=== PATIENT | female | born 1925 | race African-American/Black ===

== ENCOUNTER 2016-12-19 10:15 | Emergency (ER) | payer MEDICARE ==
[~2016-12-19 10:15] MED LIST changes: -IOHEXOL 240 MG/ML 50ML VIAL. PO ONE
[2016-12-19] MEDS ORDERED: DEXTROSE 50% 25 GM / 50ML DISP.SYRIN. IV ONE ×2 (10:18→10:30)
[2016-12-19] MEDS ORDERED: DEXTROSE ORAL GEL 15 GM TUBE. ONE (10:19)
--- NOTE | 2016-12-19 10:33 | PHYS DOC ---
Past Medical History Past Medical History: Cancer, Diabetes-Type II, Hypertension, Other Additional Past Medical Histor: breast cancer Past Surgical History: Hysterectomy, Other Additional Past Surgical Histo: bilateral mastectomy Alcohol Use: None Drug Use: None Adult General Chief Complaint Chief Complaint: HYPOGLYCEMIA HPI HPI Patient is a 89 year old female who presents with friend from radiology waiting room for altered mental status. She came here nothing by mouth for an outpatient oral contrasted CT. She states she drinks worse juice and took 3 glucose tablets this morning, she also took her metformin. She did not eat otherwise. She went to the restroom and was there too long. Radiology staff was asked to check on her and she was found sitting on the toilet slumped against the wall. She was brought her by wheelchair nearly unresponsive. Her blood glucose was found to be very low upon arrival here. This was replaced with IV dextrose with mental status returned to baseline. She gave history as stated after her mental status was fixed. She otherwise states she has been in normal state of health. She denies headache, vision changes, numbness, tingling, weakness, chest pain, abdominal pain, nausea or vomiting, fever or chills, dysuria, diarrhea. She has been eating and drinking normal until her restriction today. Review of Systems Review of Systems Constitutional: Denies fever or chills [] Eyes: Denies change in visual acuity, redness, or eye pain [] HENT: Denies nasal congestion or sore throat [] Respiratory: Denies cough or shortness of breath [] Cardiovascular: No additional information not addressed in HPI [] GI: Denies abdominal pain, nausea, vomiting, bloody stools or diarrhea [] : Denies dysuria or hematuria [] Musculoskeletal: Denies back pain or joint pain [] Integument: Denies rash or skin lesions [] Neurologic: Denies headache, focal weakness or sensory changes [] Endocrine: Denies polyuria or polydipsia [] Current Medications Current Medications Current Medications Medications (Trade) Dose Ordered Sig/Herman Start Time Stop Time Status Last Admin Dose Admin Dextrose 25 gm STK-MED ONCE 12/19/16 10:18 12/19/16 10:19 DC Dextrose/Sodium Chloride (Iv D5% - NS) 1,000 ml @ 100 mls/hr 1X ONCE 12/19/16 11:00 12/19/16 20:59 12/19/16 10:40 100 MLS/HR Glucose 15 gm 15 gm STK-MED ONCE 12/19/16 10:19 12/19/16 10:20 DC Allergies Allergies Allergies Coded Allergies Type Severity Reaction Last Updated Verified lisinopril Allergy Severe angioedema 11/14/15 Yes Physical Exam Physical Exam Constitutional: Well developed, well nourished, no acute distress, non-toxic appearance. [] HENT: Normocephalic, atraumatic, bilateral external ears normal, oropharynx moist, no oral exudates, nose normal. [] Eyes: PERRLA, EOMI. [] Neck: Normal range of motion, supple. [] Cardiovascular:Heart rate regular rhythm [] Lungs & Thorax: Bilateral breath sounds clear to auscultation [] Abdomen: Bowel sounds normal, soft, no tenderness. [] Skin: Warm, dry, no erythema, no rash. [] Back: Normal range of motion. [] Extremities: No tenderness, ROM intact, no edema. [] Neurologic: Alert and oriented X 3, normal motor function, normal sensory function, no focal deficits noted, cranial nerves II through XII intact. [] Psychologic: Affect normal, judgement normal, mood normal. [] Current Patient Data Vital Signs Vital Signs Date Time Temp Pulse Resp B/P Pulse Ox O2 Delivery O2 Flow Rate FiO2 12/19/16 10:15 98.2 87 28 224/106 95 Room Air 98.2 Lab Values Laboratory Tests Test 12/19/16 10:20 12/19/16 11:09 12/19/16 12:13 White Blood Count 5.9x10^3/uL (4.0-11.0) Red Blood Count 5.07x10^6/uL (3.50-5.40) Hemoglobin 14.7g/dL (12.0-15.5) Hematocrit 41.7% (36.0-47.0) Mean Corpuscular Volume 82fL (79-100) Mean Corpuscular Hemoglobin 29pg (25-35) Mean Corpuscular Hemoglobin Concent 35g/dL (31-37) Red Cell Distribution Width 14.8% (11.5-14.5) H Platelet Count 324x10^3/uL (140-400) Neutrophils (%) (Auto) 51% (31-73) Lymphocytes (%) (Auto) 37% (24-48) Monocytes (%) (Auto) 10% (0-9) H Eosinophils (%) (Auto) 1% (0-3) Basophils (%) (Auto) 1% (0-3) Neutrophils # (Auto) 3.0x10^3uL (1.8-7.7) Lymphocytes # (Auto) 2.2x10^3/uL (1.0-4.8) Monocytes # (Auto) 0.6x10^3/uL (0.0-1.1) Eosinophils # (Auto) 0.1x10^3/uL (0.0-0.7) Basophils # (Auto) 0.1x10^3/uL (0.0-0.2) Sodium Level 143mmol/L (136-145) Potassium Level 3.8mmol/L (3.5-5.1) Chloride Level 103mmol/L (98-107) Carbon Dioxide Level 27mmol/L (21-32) Anion Gap 13 (6-14) Blood Urea Nitrogen 34mg/dL (7-20) H Creatinine 1.1mg/dL (0.6-1.0) H Estimated GFR (Cockcroft-Gault) 56.6 Glucose Level 23mg/dL (70-99) *L Calcium Level 10.0mg/dL (8.5-10.1) Glucose (Fingerstick) 107mg/dL (70-99) H 99mg/dL (70-99) Laboratory Tests 12/19/16 10:20 Laboratory Tests 12/19/16 10:20 EKG EKG EKG as interpreted by me as normal sinus rhythm, rate 86, no ST-T changes, normal intervals, no ectopy. Course & Med Decision Making Course & Med Decision Making Pertinent Labs and Imaging studies reviewed. (See chart for details) She initially had severely altered mental status. Hypoglycemia was treated with IV dextrose. She then had her outpatient CT study performed with IV dextrose infusion. She was observed after this and fed. Her mental status stayed at baseline. She wanted to go home and follow-up with primary care doctor. Return precautions given. She understands and agrees with plan. Dragon Disclaimer Dragon Disclaimer This electronic medical record was generated, in whole or in part, using a voice recognition dictation system. Departure Departure Impression: Primary Impression: Hypoglycemia Disposition: HOME, SELF-CARE Condition: STABLE Referrals: ORLANDO DOMINGUEZ MD (PCP) Patient Instructions: Hypoglycemia, [id number] Additional Instructions: Follow up with your primary care doctor. Return for any concerns. Luis Fernando DIEHL MD Dec 19, 2016 10:33
[2016-12-19 10:52] LABS: BASO % 1 % (0-3); EOS % 1 % (0-3); HEMATOCRIT 41.7 % (36.0-47.0); HEMOGLOBIN 14.7 g/dL (12.0-15.5); LYMPH # 2.2 x10^3/uL (1.0-4.8); LYMPH % 37 % (24-48); MEAN CORPUSCULAR HEMOGLOBIN 29 pg (25-35); MEAN CORPUSCULAR HGB CONC 35 g/dL (31-37); MEAN CORPUSCULAR VOLUME 82 fL (79-100); MONO % 10 % (0-9); NEUT % 51 % (31-73); PLATELET COUNT 324 x10^3/uL (140-400); RED BLOOD COUNT 5.07 x10^6/uL (3.50-5.40); RED CELL DISTRIBUTION WIDTH 14.8 % (11.5-14.5); WHITE BLOOD COUNT 5.9 x10^3/uL (4.0-11.0)
[2016-12-19 10:53] LABS: BASO # 0.1 x10^3/uL (0.0-0.2)
[2016-12-19] MEDS ORDERED: IV DEXTROSE 5% - 0.9 % NACL 1,000 ML IV ONE (11:00)
[2016-12-19 11:27] LABS: CREATININE 1.1 mg/dL (0.6-1.0); GFR 56.6; POTASSIUM 3.8 mmol/L (3.5-5.1)
[2016-12-19 11:51] VITALS: BP 183/81
--- NOTE | 2016-12-19 14:27 | EKG ---
[facility] [address] [place] [address] Test Date: 2016-12-19 Test Time: 10:18:25 Pat Name: RIZWANA STILES Department: Room: Gender: F Director Private: : [id number] Requested By: Luis Fernando DIEHL Order Number: [id number] Reading MD: Measurements Intervals [place] Rate: 86 P: -90 TN: 126 QRS: -11 QRSD: 86 T: 13 QT: 350 QTc: 422 Interpretive Statements SUPRAVENTRICULAR RHYTHM LEFTWARD AXIS RI6.01 Unconfirmed report No previous ECG available for comparison
== END 2016-12-19 12:59 | disposition home or self-care (01) ==
LOC: ER 10:15
DX: E11.649 Type 2 diabetes mellitus with hypoglycemia without coma (principal); R41.82 Altered mental status, unspecified; I10 Essential (primary) hypertension; Z90.710 Acquired absence of both cervix and uterus; Z88.8 Allergy status to other drugs, medicaments and biological substances
CPT/HCPCS: 36415; 80048; 82947; 85027; 93005; 96361; 96374; J7042; 99285-25

== ENCOUNTER → 2016-12-19 | Outpatient (CLI) | payer MEDICARE ==
[2016-06-19 19:38] VITALS: BP 142/75
[~2016-12-19] MED LIST: ACET325T9 PO; AMLO5TAB4 PO; ANAS1TAB3 PO; ASPI-482 PO; CARV6.25 PO; CITA10TA8 PO; CYAN10005 PO; DICL100G7 TP; ERGO500012 PO; FURO-68 PO; INSU100C4 SQ; INSU100I17 SQ; INSU100I27 SQ; INSU100V8 SQ; IOHEXOL 240 MG/ML 50ML VIAL. PO ONE; LOSA100T2 PO; MAGN400C PO; MAGN400T3 PO; MAGN500T PO; METF10002 PO; METF500T4 PO; MULT1TAB13 PO; POTA20TA84 PO; TRAM50TA PO
--- NOTE | 2016-12-19 11:16 | RAD ---
EXAM: CT OF THE CHEST, ABDOMEN AND PELVIS WITHOUT INTRAVENOUS CONTRAST. HISTORY: Restaging breast cancer. TECHNIQUE: Computed tomography of the chest, abdomen and pelvis was performed without intravenous contrast. COMPARISON: 08/09/2016. 11/29/2015 FINDINGS: Bone windows reveal no suspicious lesions. There is grade 1 anterolisthesis at L4-5. There is diffuse moderate to severe lumbar degenerative disc disease. There is moderate to severe central canal stenosis from L3 through S1. There are no pathologically enlarged mediastinal or axillary lymph nodes. Calcified mediastinal lymph nodes are likely secondary to old granulomatous disease. There is no pleural or pericardial effusion. The heart is mildly enlarged. There is a moderate hiatal hernia. The left thyroid lobe is mildly enlarged. There are changes of bilateral mastectomy. Regions of groundglass density along the right minor fissure are mild pleural thickening and are flat on the coronal images. These are stable. There is a stable 3 mm groundglass density nodule in the right middle lobe on image 33. A pleural-based nodule in the left lower lobe on image 27 measures 6 mm and is stable. Calcified granulomas are noted in the left lower lobe. There is mild bibasilar atelectasis. There are calcified granulomas in the liver and spleen. The gallbladder, pancreas, and adrenal glands are unremarkable without contrast. A small nodule inferolaterally along the left renal lower pole may represent only cortical lobulation and is stable chronically and likely benign. There is no hydronephrosis. There are no pathologically enlarged lymph nodes. Left colonic diverticulosis is moderate. There is no ascites. The appendix is not inflamed. There is no obstruction. The uterus is surgically absent. IMPRESSION: 1. No clear evidence of metastatic disease. 2. Multiple small pulmonary nodules have been stable since at least 11/18/2014 and are likely benign. 3. Mild cardiomegaly. 4. Moderate hiatal hernia. 5. Moderate to severe central canal stenosis along the lower lumbar spine. *One or more of the following individualized dose reduction techniques were utilized for this examination: 1. Automated exposure control. 2. Adjustment of the mA and/or kV according to patient size. 3. Use of iterative reconstruction technique.
--- NOTE | 2016-12-19 13:36 | RAD ---
EXAM: Bone scintigraphy. HISTORY: Breast cancer. TECHNIQUE: Following the intravenous injection of 25.0 mCi of Tc-99m labeled methylene diphosphonate (MDP), delayed images of the whole body were performed in anterior and posterior projections. Comparison is made with today's CT and prior scintigraphy of 11/18/2014. FINDINGS: A focus of uptake along the right anterior seventh rib is consistent with a subacute nondisplaced rib fracture on today's CT. Regions of mild uptake along the lumbar spine correspond with advanced degenerative changes on CT. There is also degenerative uptake at the right greater than left shoulders. Mild uptake at the right hip is consistent with osteoarthritis. There is also degenerative uptake along both hindfeet/mid feet. There is intense uptake along the lateral compartment of the right knee, at the left patella. These are most likely degenerative in this distribution. No foci of intense uptake suggestive of metastatic disease are identified. IMPRESSION: 1. No scintigraphic evidence of osseous metastatic disease. 2. Intense uptake at the right greater than left knees is most likely degenerative. Plain radiographs could further evaluate. Additional milder degenerative uptake as above. 3. Subacute right anterior seventh rib fracture.
== END | disposition home or self-care (01) ==
LOC: NM 08:38
PROVIDERS: ATTEND Internal Medicine Hematology & Oncology
DX: C50.511 Malignant neoplasm of lower-outer quadrant of right female breast (principal); I10 Essential (primary) hypertension; E11.9 Type 2 diabetes mellitus without complications
CPT/HCPCS: 71250; 74176; 78306; 82947; 96374; A9503; Q9966

== ENCOUNTER 2017-01-15 03:18 | Emergency (ER) | payer MEDICARE ==
[~2017-01-15] VITALS: Ht 154.9 cm; Wt 77.1 kg
[~2017-01-15 03:18] MED LIST changes: +DICL100G18 TP; -DICL100G7 TP; -ERGO500012 PO; +ERGO500027 PO; +METF-620 PO; -METF10002 PO
[2017-01-15 03:44] VITALS: BP 188/86
[2017-01-15 04:21] LABS: BASO # 0.1 x10^3/uL (0.0-0.2); BASO % 1 % (0-3); EOS % 2 % (0-3); HEMATOCRIT 38.2 % (36.0-47.0); HEMOGLOBIN 13.1 g/dL (12.0-15.5); LYMPH # 1.4 x10^3/uL (1.0-4.8); LYMPH % 20 % (24-48); MEAN CORPUSCULAR HEMOGLOBIN 29 pg (25-35); MEAN CORPUSCULAR HGB CONC 34 g/dL (31-37); MEAN CORPUSCULAR VOLUME 84 fL (79-100); MONO % 9 % (0-9); NEUT % 68 % (31-73); PLATELET COUNT 291 x10^3/uL (140-400); RED BLOOD COUNT 4.53 x10^6/uL (3.50-5.40); RED CELL DISTRIBUTION WIDTH 14.8 % (11.5-14.5); WHITE BLOOD COUNT 6.7 x10^3/uL (4.0-11.0)
[2017-01-15 04:28] LABS: CALCIUM 10.2 mg/dL (8.5-10.1); CREATININE 1.2 mg/dL (0.6-1.0); GFR 51.2; POTASSIUM 3.8 mmol/L (3.5-5.1)
--- NOTE | 2017-01-15 05:02 | PHYS DOC ---
Past Medical History Past Medical History: Cancer, Diabetes-Type II, Hypertension, Other Additional Past Medical Histor: breast cancer Past Surgical History: Hysterectomy, Other Additional Past Surgical Histo: bilateral mastectomy Alcohol Use: None Drug Use: None Adult General Chief Complaint Chief Complaint: BLOOD SUGAR PROBLEM [facility] This is a very pleasant 89-year-old female who states she ran out of her usual Lantus therapy for her diabetes and was using a sample of Levemir to treat her blood glucose after she found it to be elevated at home in the 300 range. She then repeated her blood glucose several hours later and found her blood glucose to be low. She denies any significant symptoms but wanted to be evaluated because she states she does not feel the same way that she usually does when she takes her Lantus. On arrival, her blood glucose is 86. The patient does not appear to be in any stress. She is speaking in sentences. She does not have any pain. She denies any fever or chills. She denies any chest pain. She denies any shortness of breath. Review of Systems Review of Systems Constitutional: Denies fever or chills [] Eyes: Denies change in visual acuity, redness, or eye pain [] HENT: Denies nasal congestion or sore throat [] Respiratory: Denies cough or shortness of breath [] Cardiovascular: No additional information not addressed in HPI [] GI: Denies abdominal pain, nausea, vomiting, bloody stools or diarrhea [] : Denies dysuria or hematuria [] Musculoskeletal: Denies back pain or joint pain [] Integument: Denies rash or skin lesions [] Neurologic: Denies headache, focal weakness or sensory changes [] Endocrine: Denies polyuria or polydipsia [] Allergies Allergies Allergies Coded Allergies Type Severity Reaction Last Updated Verified lisinopril Allergy Severe angioedema 11/14/15 Yes Physical Exam Physical Exam Constitutional: Well developed, well nourished, no acute distress, non-toxic appearance. [] HENT: Normocephalic, atraumatic, bilateral external ears normal, oropharynx moist, no oral exudates, nose normal. [] Eyes: PERRLA, EOMI, conjunctiva normal, no discharge. [] Neck: Normal range of motion, no tenderness, supple, no stridor. [] Cardiovascular:Heart rate regular rhythm, no murmur [] Lungs & Thorax: Bilateral breath sounds clear to auscultation [] Abdomen: Bowel sounds normal, soft, no tenderness, no masses, no pulsatile masses. [] Skin: Warm, dry, no erythema, no rash. [] Back: No tenderness, no CVA tenderness. [] Extremities: No tenderness, no cyanosis, no clubbing, ROM intact, no edema. [] Neurologic: Alert and oriented X 3, normal motor function, normal sensory function, no focal deficits noted. [] Psychologic: Affect normal, judgement normal, mood normal. [] Current Patient Data Vital Signs Vital Signs Date Time Temp Pulse Resp B/P Pulse Ox O2 Delivery O2 Flow Rate FiO2 01/15/17 03:44 97.7 77 20 188/86 97 Room Air 97.7 Lab Values Laboratory Tests Test 01/15/17 03:39 01/15/17 04:06 Glucose (Fingerstick) 86mg/dL (70-99) White Blood Count 6.7x10^3/uL (4.0-11.0) Red Blood Count 4.53x10^6/uL (3.50-5.40) Hemoglobin 13.1g/dL (12.0-15.5) Hematocrit 38.2% (36.0-47.0) Mean Corpuscular Volume 84fL (79-100) Mean Corpuscular Hemoglobin 29pg (25-35) Mean Corpuscular Hemoglobin Concent 34g/dL (31-37) Red Cell Distribution Width 14.8% (11.5-14.5) H Platelet Count 291x10^3/uL (140-400) Neutrophils (%) (Auto) 68% (31-73) Lymphocytes (%) (Auto) 20% (24-48) L Monocytes (%) (Auto) 9% (0-9) Eosinophils (%) (Auto) 2% (0-3) Basophils (%) (Auto) 1% (0-3) Neutrophils # (Auto) 4.6x10^3uL (1.8-7.7) Lymphocytes # (Auto) 1.4x10^3/uL (1.0-4.8) Monocytes # (Auto) 0.6x10^3/uL (0.0-1.1) Eosinophils # (Auto) 0.1x10^3/uL (0.0-0.7) Basophils # (Auto) 0.1x10^3/uL (0.0-0.2) Sodium Level 140mmol/L (136-145) Potassium Level 3.8mmol/L (3.5-5.1) Chloride Level 101mmol/L (98-107) Carbon Dioxide Level 27mmol/L (21-32) Anion Gap 12 (6-14) Blood Urea Nitrogen 29mg/dL (7-20) H Creatinine 1.2mg/dL (0.6-1.0) H Estimated GFR (Cockcroft-Gault) 51.2 Glucose Level 86mg/dL (70-99) Calcium Level 10.2mg/dL (8.5-10.1) H Laboratory Tests 01/15/17 04:06 Laboratory Tests 01/15/17 04:06 EKG EKG [] Radiology/Procedures Radiology/Procedures [] Course & Med Decision Making Course & Med Decision Making Pertinent Labs and Imaging studies reviewed. (See chart for details) This pleasant 89-year-old female who states she has run out of her Lantus and is using Levemir until she can get it refilled was observed in the department for multiple hours and a blood glucose checked multiple times. Laboratory workup was unremarkable. Her blood glucose remained normal. She has not had any symptoms whatsoever and will be safe to be discharged. I discussed the need with the daughter to follow-up with her primary care doctor to get her Lantus refilled. The daughter states she will attempt to do this later today. She'll be discharged without incident. Dragon Disclaimer Dragon Disclaimer This electronic medical record was generated, in whole or in part, using a voice recognition dictation system. Departure Departure Impression: Primary Impression: Low blood glucose measurement Disposition: 01 HOME, SELF-CARE Admitting Physician: Other Condition: STABLE Referrals: ORLANDO DOMINGUEZ MD (PCP) Patient Instructions: Hypoglycemia, [id number] Additional Instructions: Please follow up later today with your primary doctor to have your Lantus prescription refilled. Continue to use your Levemir until you can receive your prescription refill. Return to the ER if you develop difficulty controlling your blood glucose or if you develop any significant symptoms such as nausea, vomiting, weakness, or lightheadedness. JAVED SOLIMAN DO Jan 15, 2017 05:02
[2017-01-19] MEDS ORDERED: METF-620 PO (02:32)
== END 2017-01-15 05:31 | disposition home or self-care (01) ==
LOC: ER 03:18
DX: E11.649 Type 2 diabetes mellitus with hypoglycemia without coma (principal); I10 Essential (primary) hypertension; Z79.4 Long term (current) use of insulin; Z88.8 Allergy status to other drugs, medicaments and biological substances; Z90.13 Acquired absence of bilateral breasts and nipples
CPT/HCPCS: 36415; 80048; 82962; 85027; 99284

== ENCOUNTER 2017-01-18 20:58 | Inpatient (IN) | payer MEDICARE ==
[~2017-01-18] VITALS: Ht 154.9 cm; Wt 73.0 kg
[~2017-01-18 20:58] MED LIST changes: -DICL100G18 TP; +DICL100G7 TP; +ERGO500012 PO; -ERGO500027 PO; -METF-620 PO; +METF10002 PO
[2017-01-18 22:11] LABS: BASO % 1 % (0-3); EOS % 0 % (0-3); HEMATOCRIT 39.6 % (36.0-47.0); HEMOGLOBIN 13.4 g/dL (12.0-15.5); LYMPH # 1.8 x10^3/uL (1.0-4.8); LYMPH % 31 % (24-48); MEAN CORPUSCULAR HEMOGLOBIN 28 pg (25-35); MEAN CORPUSCULAR HGB CONC 34 g/dL (31-37); MEAN CORPUSCULAR VOLUME 84 fL (79-100); MONO % 13 % (0-9); NEUT % 55 % (31-73); PLATELET COUNT 301 x10^3/uL (140-400); RED BLOOD COUNT 4.72 x10^6/uL (3.50-5.40); RED CELL DISTRIBUTION WIDTH 14.8 % (11.5-14.5); WHITE BLOOD COUNT 5.9 x10^3/uL (4.0-11.0)
[2017-01-18 22:14] LABS: BILIRUBIN,URINE NEGATIVE (NEG); GLUCOSE,URINE NEGATIVE (NEG); NITRITE,URINE NEGATIVE (NEG); PH,URINE 5.5; PROTEIN,URINE NEGATIVE (NEG-TRACE); UROBILINOGEN,URINE 0.2 mg/dL (0.2 mg/dL)
[2017-01-18 22:22] LABS: BACTERIA,URINE 0 /HPF (0-FEW); RBC,URINE 0 /HPF (0-2); SQUAMOUS EPITHELIAL CELL,UR FEW /LPF; WBC,URINE 0 /HPF (0-4)
[2017-01-18 22:27] LABS: CALCIUM 9.8 mg/dL (8.5-10.1); CREATININE 1.5 mg/dL (0.6-1.0); GFR 39.6; POTASSIUM 3.9 mmol/L (3.5-5.1)
[2017-01-18 23:06] LABS: ALBUMIN 3.8 g/dL (3.4-5.0); DIRECT BILIRUBIN 0.2 mg/dL (0.0-0.2); TOTAL BILIRUBIN 0.7 mg/dL (0.2-1.0); TOTAL PROTEIN 7.9 g/dL (6.4-8.2)
--- NOTE | 2017-01-18 23:33 | RAD ---
PROCEDURE CT scan of the head without contrast 01/18/2017 HISTORY Altered mental status and weakness. TECHNIQUE Unenhanced contiguous, 5 millimeter axial sections were obtained through the head. One or more of the following individualized dose reduction techniques were utilized for this study: 1. Automated exposure control. 2. Adjustment of the mA and/or kV according to patient size. 3. Use of iterative reconstruction technique. FINDINGS Comparison study is dated 03/29/2016. There is generalized parenchymal atrophy. Areas of decreased attenuation are seen within the white matter both cerebral hemispheres consistent with areas of small vessel ischemic disease. No acute parenchymal abnormality is seen. No extra-axial fluid collection is noted. No skull fracture is seen. IMPRESSION No acute intracranial abnormality is seen. Electronically signed by: Pelon Coker MD (Jan 18, 2017 23:33:11)
--- NOTE | 2017-01-19 00:04 | PHYS DOC ---
Past Medical History Past Medical History: Cancer, Diabetes-Type II, Hypertension, Other Additional Past Medical Histor: breast cancer Past Surgical History: Hysterectomy, Other Additional Past Surgical Histo: bilateral mastectomy Alcohol Use: None Drug Use: None Adult General Chief Complaint Chief Complaint: ALTERED MENTAL STATUS [facility] Patient is a 89 year old female who presents with family for concern of altered mental status gradually developing throughout today. Daughter and granddaughter saw her yesterday, and states she was in her normal state of health; ambulatory and oriented. She lives independently and ambulates without assistance. Family states today she has confused and tired appearing. Family states she has been slightly disoriented and is not getting out of bed. Family states she had an episode of urinary incontinence. Patient and family otherwise deny other complaints or symptoms at this time. She states she feels fine, other than being tired. Review of Systems Review of Systems Constitutional: Denies fever or chills [] Eyes: Denies change in visual acuity, redness, or eye pain [] HENT: Denies nasal congestion or sore throat [] Respiratory: Denies cough or shortness of breath [] Cardiovascular: No additional information not addressed in HPI [] GI: Denies abdominal pain, nausea, vomiting, bloody stools or diarrhea [] : Denies dysuria or hematuria [] Musculoskeletal: Denies back pain or joint pain [] Integument: Denies rash or skin lesions [] Neurologic: Denies headache, focal weakness or sensory changes [] Endocrine: Denies polyuria or polydipsia [] Allergies Allergies Allergies Coded Allergies Type Severity Reaction Last Updated Verified lisinopril Allergy Severe angioedema 11/14/15 Yes Physical Exam Physical Exam Constitutional: Well developed, well nourished, no acute distress, non-toxic appearance. [] HENT: Normocephalic, atraumatic, bilateral external ears normal, oropharynx moist, no oral exudates, nose normal. [] Eyes: PERRLA, EOMI, conjunctiva normal, no discharge. [] Neck: Normal range of motion, no tenderness, supple, no stridor. [] Cardiovascular:Heart rate regular rhythm [] Lungs & Thorax: Bilateral breath sounds clear to auscultation [] Abdomen: Bowel sounds normal, soft, no tenderness. [] Skin: Warm, dry, no erythema, no rash. [] Back: No tenderness, no CVA tenderness. [] Extremities: No tenderness, ROM intact, no edema. [] Neurologic: Alert and oriented to self, year, situation; normal motor function, normal sensory function, no focal deficits noted, no extremity drift. [] Psychologic: Affect normal, judgement normal, mood normal. [] Current Patient Data Vital Signs Vital Signs Date Time Temp Pulse Resp B/P Pulse Ox O2 Delivery O2 Flow Rate FiO2 01/18/17 21:20 99.0 96 18 164/75 97 Room Air 99.0 Lab Values Laboratory Tests Test 01/18/17 21:10 White Blood Count 5.9x10^3/uL (4.0-11.0) Red Blood Count 4.72x10^6/uL (3.50-5.40) Hemoglobin 13.4g/dL (12.0-15.5) Hematocrit 39.6% (36.0-47.0) Mean Corpuscular Volume 84fL (79-100) Mean Corpuscular Hemoglobin 28pg (25-35) Mean Corpuscular Hemoglobin Concent 34g/dL (31-37) Red Cell Distribution Width 14.8% (11.5-14.5) H Platelet Count 301x10^3/uL (140-400) Neutrophils (%) (Auto) 55% (31-73) Lymphocytes (%) (Auto) 31% (24-48) Monocytes (%) (Auto) 13% (0-9) H Eosinophils (%) (Auto) 0% (0-3) Basophils (%) (Auto) 1% (0-3) Neutrophils # (Auto) 3.3x10^3uL (1.8-7.7) Lymphocytes # (Auto) 1.8x10^3/uL (1.0-4.8) Monocytes # (Auto) 0.8x10^3/uL (0.0-1.1) Eosinophils # (Auto) 0.0x10^3/uL (0.0-0.7) Basophils # (Auto) 0.0x10^3/uL (0.0-0.2) Urine Collection Type Unknown Urine Color Yellow Urine Clarity Clear Urine pH 5.5 Urine Specific [place] 1.015 Urine Protein Negativemg/dL (NEG-TRACE) Urine Glucose (UA) Negativemg/dL (NEG) Urine Ketones (Stick) Tracemg/dL (NEG) Urine Blood Negative (NEG) Urine Nitrite Negative (NEG) Urine Bilirubin Negative (NEG) Urine Urobilinogen Dipstick 0.2mg/dL (0.2 mg/dL) Urine Leukocyte Esterase Negative (NEG) Urine RBC 0/HPF (0-2) Urine WBC 0/HPF (0-4) Urine Squamous Epithelial Cells Few/LPF Urine Bacteria 0/HPF (0-FEW) Urine Mucus Slight/LPF Sodium Level 139mmol/L (136-145) Potassium Level 3.9mmol/L (3.5-5.1) Chloride Level 100mmol/L (98-107) Carbon Dioxide Level 28mmol/L (21-32) Anion Gap 11 (6-14) Blood Urea Nitrogen 39mg/dL (7-20) H Creatinine 1.5mg/dL (0.6-1.0) H Estimated GFR (Cockcroft-Gault) 39.6 Glucose Level 119mg/dL (70-99) H Calcium Level 9.8mg/dL (8.5-10.1) Total Bilirubin 0.7mg/dL (0.2-1.0) Direct Bilirubin 0.2mg/dL (0.0-0.2) Aspartate Amino Transferase (AST) 31U/L (15-37) Alanine Aminotransferase (ALT) 21U/L (14-59) Alkaline Phosphatase 101U/L (46-116) Creatine Kinase 446U/L (26-192) H Troponin I Quantitative 0.017ng/mL (0.000-0.055) FR-Qid-I-Type Natriuretic Peptide 370pg/mL (0-449) Total Protein 7.9g/dL (6.4-8.2) Albumin 3.8g/dL (3.4-5.0) Laboratory Tests 01/18/17 21:10 Laboratory Tests 01/18/17 21:10 EKG EKG EKG as interpreted by me as normal sinus rhythm, rate 96, no ST-T changes, normal intervals, no ectopy Radiology/Procedures Radiology/Procedures Chest x-ray as interpreted by me with mild bilateral haziness concerning for atelectasis, overall nonacute CT head without contrast IMPRESSION No acute intracranial abnormality is seen. Electronically signed by: Pelon Coker MD (Jan 18, 2017 23:33:11) Course & Med Decision Making Course & Med Decision Making Pertinent Labs and Imaging studies reviewed. (See chart for details) Workup is largely unremarkable. Family is concerned for her safety as she lives independently and they are unable to provide 24-hour care for her. Discussed case with Dr. Dominguez, who will admit for observation. Family agrees with plan. Dragon Disclaimer Dragon Disclaimer This electronic medical record was generated, in whole or in part, using a voice recognition dictation system. Departure Departure Impression: Primary Impression: Altered mental status Disposition: 09 ADMITTED INPATIENT Condition: STABLE Referrals: ORLANDO DOMINGUEZ MD (PCP) Problem Qualifiers Primary Impression: Altered mental status Altered mental status type: unspecified Qualified Code: R41.82 - Altered mental status, unspecified Luis Fernando DIEHL MD Jan 19, 2017 00:04
[2017-01-19] MEDS ORDERED: ONDANSETRON PF 4 MG/2 ML VIAL. IV PRN (01:15)
[2017-01-19] MEDS ORDERED: ACETAMINOPHEN 325 MG TABLET. PO PRN (01:15)
[2017-01-19 01:35] VITALS: BP 145/49
[2017-01-19] MEDS: IV NORMAL SALINE 1000ML BAG 1,000 ML IV SCH ×2 (01:54→15:11)
[2017-01-19] MEDS ORDERED: MAGN400T3 PO (02:32)
[2017-01-19] MEDS ORDERED: METF10002 PO (02:32)
--- NOTE | 2017-01-19 06:15 | EKG ---
[facility] [address] [place] [address] Test Date: 2017-01-18 Test Time: 21:11:13 Pat Name: RIZWANA STILES Department: Room: Gender: F [employer] Person: : 1925 Requested By: Luis Fernando DIEHL Order Number: [id number] Reading MD: Measurements Intervals [place] Rate: 96 P: 90 [place]: 182 QRS: -168 QRSD: 84 T: 152 QT: 332 QTc: 426 Interpretive Statements SINUS RHYTHM ABNORMAL RIGHT SUPERIOR AXIS DEVIATION QRS(T) CONTOUR ABNORMALITY CONSISTENT WITH HIGH LATERAL INFARCT AGE UNDETERMINED CONSIDER INFERIOR INFARCT RI6.01 No previous ECG available for comparison
--- NOTE | 2017-01-19 07:27 | RAD ---
Exam: AP portable chest. History: Altered mental status. Comparison: 06/19/2016. Findings: The heart and mediastinal structures are within normal limits for size. Lungs are without infiltrate. No pneumothorax or pleural effusion is appreciated. Bilateral shoulder degeneration is seen. Impression: 1. No acute cardiopulmonary process.
[2017-01-19 07:50] VITALS: BP 115/54
[2017-01-19 08:03] VITALS: BP 115/54
[2017-01-19] MEDS: INSULIN DETEMIR 300 UNITS/3 ML INSULN.PEN. SQ SCH (10:00)
[2017-01-19] MEDS: ASPIRIN ENTERIC COATED 81 MG TABLET.DR. PO SCH (10:02)
[2017-01-19] MEDS: CYANOCOBALAMIN (VITAMIN B-12) 1,000 MCG TABLET. PO SCH (10:02)
[2017-01-19] MEDS: ACETAMINOPHEN 500 MG TABLET PO SCH (10:02)
[2017-01-19] MEDS: MAGNESIUM OXIDE 400 MG TABLET PO SCH (10:02)
[2017-01-19] MEDS: CARVEDILOL 6.25 MG TABLET. PO SCH ×2 (10:03→17:12)
[2017-01-19 11:01] VITALS: BP 129/62
[2017-01-19] MEDS: INSULIN ASPART 300 UNITS/3 ML INSULN.PEN SQ SCH ×2 (11:30→16:30)
--- NOTE | 2017-01-19 12:03 | PDOC ---
OBJECTIVE Vital Signs Vital Signs Date Time Temp Pulse Resp B/P Pulse Ox O2 Delivery O2 Flow Rate FiO2 01/19/17 11:01 98.6 84 17 129/62 99 Room Air 98.6 01/19/17 10:03 80 115/54 01/19/17 08:03 98.6 80 16 115/54 97 Room Air 98.6 01/19/17 08:00 Room Air 01/19/17 07:50 98.6 80 16 115/54 97 Room Air 98.6 01/19/17 01:35 99.0 95 16 145/49 97 Room Air 99.0 01/19/17 01:00 90 156/78 96 Room Air 01/19/17 00:30 90 163/72 96 Room Air 01/18/17 21:20 99.0 96 18 164/75 97 Room Air 99.0 I & O Intake and Output 01/19/17 07:00 Intake Total 0 ml Balance 0 ml Intake Oral 0 ml ASSESSMENT/PLAN Assessment/Plan [id number] H&P dictated Problems: COMMENT Lab Laboratory Tests Test 01/18/17 21:10 01/19/17 07:16 01/19/17 10:48 White Blood Count 5.9x10^3/uL (4.0-11.0) Red Blood Count 4.72x10^6/uL (3.50-5.40) Hemoglobin 13.4g/dL (12.0-15.5) Hematocrit 39.6% (36.0-47.0) Mean Corpuscular Volume 84fL (79-100) Mean Corpuscular Hemoglobin 28pg (25-35) Mean Corpuscular Hemoglobin Concent 34g/dL (31-37) Red Cell Distribution Width 14.8% (11.5-14.5) Platelet Count 301x10^3/uL (140-400) Neutrophils (%) (Auto) 55% (31-73) Lymphocytes (%) (Auto) 31% (24-48) Monocytes (%) (Auto) 13% (0-9) Eosinophils (%) (Auto) 0% (0-3) Basophils (%) (Auto) 1% (0-3) Neutrophils # (Auto) 3.3x10^3uL (1.8-7.7) Lymphocytes # (Auto) 1.8x10^3/uL (1.0-4.8) Monocytes # (Auto) 0.8x10^3/uL (0.0-1.1) Eosinophils # (Auto) 0.0x10^3/uL (0.0-0.7) Basophils # (Auto) 0.0x10^3/uL (0.0-0.2) Urine Collection Type Unknown Urine Color Yellow Urine Clarity Clear Urine pH 5.5 Urine Specific [place] 1.015 Urine Protein Negativemg/dL (NEG-TRACE) Urine Glucose (UA) Negativemg/dL (NEG) Urine Ketones (Stick) Tracemg/dL (NEG) Urine Blood Negative (NEG) Urine Nitrite Negative (NEG) Urine Bilirubin Negative (NEG) Urine Urobilinogen Dipstick 0.2mg/dL (0.2 mg/dL) Urine Leukocyte Esterase Negative (NEG) Urine RBC 0/HPF (0-2) Urine WBC 0/HPF (0-4) Urine Squamous Epithelial Cells Few/LPF Urine Bacteria 0/HPF (0-FEW) Urine Mucus Slight/LPF Sodium Level 139mmol/L (136-145) Potassium Level 3.9mmol/L (3.5-5.1) Chloride Level 100mmol/L (98-107) Carbon Dioxide Level 28mmol/L (21-32) Anion Gap 11 (6-14) Blood Urea Nitrogen 39mg/dL (7-20) Creatinine 1.5mg/dL (0.6-1.0) Estimated GFR (Cockcroft-Gault) 39.6 Glucose Level 119mg/dL (70-99) Calcium Level 9.8mg/dL (8.5-10.1) Total Bilirubin 0.7mg/dL (0.2-1.0) Direct Bilirubin 0.2mg/dL (0.0-0.2) Aspartate Amino Transf (AST/SGOT) 31U/L (15-37) Alanine Aminotransferase (ALT/SGPT) 21U/L (14-59) Alkaline Phosphatase 101U/L (46-116) Creatine Kinase 446U/L (26-192) Troponin I Quantitative 0.017ng/mL (0.000-0.055) FS-Fix-Y-Type Natriuretic Peptide 370pg/mL (0-449) Total Protein 7.9g/dL (6.4-8.2) Albumin 3.8g/dL (3.4-5.0) Glucose (Fingerstick) 118mg/dL (70-99) 200mg/dL (70-99) ORLANDO DOMINGUEZ MD Jan 19, 2017 12:03
[2017-01-19 15:33] VITALS: BP 124/58
--- NOTE | 2017-01-19 18:25 | PREOP HP ---
DATE OF SERVICE: The patient is in room 508. HISTORY OF PRESENT ILLNESS: The patient is an 89-year-old lady who was brought to the Emergency Room by her daughter and granddaughter due to concern of altered mental status. She apparently has been gradually throughout the day of presentation not being acting herself. She was evaluated or she was seen by her granddaughter the day before and she was in her normal state of health. She does live by herself and ambulate independently without assistance usually. The next day, she seemed to be confused and tired, did not want to get out of bed, did not feel good, but did not have any specific complaints and had an episode of urinary incontinence, which is not usual for her. Family were concerned and brought her to the Emergency Room to be evaluated. She was evaluated in the Emergency Room and her urine was negative for UTI. Her labs were fairly okay. She was slightly dehydrated. Her CT of the head was negative. Chest x-ray was negative. Family was still not comfortable with her situation and felt that she has some change in her normal status. PAST MEDICAL HISTORY: Significant for hypertension, hypertensive cardiovascular disease, diabetes mellitus type 2, previous history of breast cancer, bilateral mastectomy, hysterectomy, history of glaucoma and cataract extraction, hyperlipidemia, osteoarthritis, and depression. FAMILY HISTORY: Positive for diabetes and hypertension. SOCIAL HISTORY: She does live independently. She does not smoke or drink alcohol and does not use drugs. REVIEW OF SYSTEMS: CONSTITUTIONAL: Denies fever or chills. EYES: Denies visual changes. HEENT: Denies nasal congestion or shortness of breath. RESPIRATORY: Denies shortness of breath. CARDIOVASCULAR: Denies chest pain or edema. GASTROINTESTINAL: Denies abdominal pain, nausea, vomiting or bloody stool. GENITOURINARY: Does have urinary stress incontinence and an episode of incontinence prior to her admission. There is no dysuria or hematuria. MUSCULOSKELETAL: She does have arthritis, but no acute pain. NEUROLOGIC: She does move all her extremities, does not have a focal weakness. PHYSICAL EXAMINATION: GENERAL: She is alert. She is oriented to the place and the month, but not to the year. She is also oriented to person. She did not appear toxic or severely. HEENT: Normocephalic, atraumatic. EYES: Conjunctivae are normal. NECK: Supple. HEART: Regular rate and rhythm. LUNGS: Fairly clear to auscultation. ABDOMEN: Soft without tenderness, rebound or guarding. SKIN: Warm and dry. EXTREMITIES: No edema, clubbing or cyanosis. NEUROLOGICAL: She was alert, oriented to self and situation. She does move all her extremities. Normal sensation. No focal deficit. LABS: Showed elevated BUN and creatinine, higher than her baseline. Her blood sugar was 119. IMPRESSION: 1. Altered mental status probably due to dehydration and ____ low blood pressure at home. The patient was admitted for observation. We will hold some of her blood pressure medication ____ diuretic, hydrate and monitor. 2. Diabetes mellitus, consider hypoglycemia as a cause of her symptoms as well. We will continue to monitor her blood sugars with Accu-Cheks a.c. and at bedtime. We will hold her metformin due to the deterioration of her kidney function. 3. Hyperlipidemia. 4. History of hypertension. We will cut down on some of her blood pressure medication. It seems that she is overmedicated. 5. History of breast cancer with no evidence of recurrence. 6. Osteoarthritis. ORLANDO DOMINGUEZ MD DR: ELISHA/clayton JOB#: [id number] / [id number]
[2017-01-19 19:00] VITALS: BP 128/60
[2017-01-20 03:00] VITALS: BP 150/84
[2017-01-20 05:34] LABS: CALCIUM 9.5 mg/dL (8.5-10.1); GFR 63.2; POTASSIUM 4.2 mmol/L (3.5-5.1)
[2017-01-20 07:00] VITALS: BP 156/88
[2017-01-20] MEDS: CYANOCOBALAMIN (VITAMIN B-12) 1,000 MCG TABLET. PO SCH (08:44)
[2017-01-20] MEDS: MAGNESIUM OXIDE 400 MG TABLET PO SCH (08:45)
[2017-01-20] MEDS: CARVEDILOL 6.25 MG TABLET. PO SCH ×2 (08:45→17:34)
[2017-01-20] MEDS: ASPIRIN ENTERIC COATED 81 MG TABLET.DR. PO SCH (08:46)
[2017-01-20] MEDS: ACETAMINOPHEN 500 MG TABLET PO SCH (08:46)
[2017-01-20] MEDS: INSULIN ASPART 300 UNITS/3 ML INSULN.PEN SQ SCH ×3 (08:52→17:33)
[2017-01-20] MEDS: INSULIN DETEMIR 300 UNITS/3 ML INSULN.PEN. SQ SCH (08:53)
[2017-01-20 11:00] VITALS: BP 129/47
--- NOTE | 2017-01-20 11:03 | PDOC ---
SUBJECTIVE Subjective wants to go home , feels ok, state lives with OBJECTIVE Vital Signs Vital Signs Date Time Temp Pulse Resp B/P Pulse Ox O2 Delivery O2 Flow Rate FiO2 01/20/17 08:45 69 156/88 01/20/17 08:00 Room Air 01/20/17 07:00 98.4 69 156/88 100 Room Air 98.4 01/20/17 03:00 98.2 62 19 150/84 92 Room Air 98.2 01/19/17 20:55 Room Air 01/19/17 19:00 98.4 65 19 128/60 96 Room Air 98.4 01/19/17 17:12 84 124/58 01/19/17 15:33 97.9 81 16 124/58 96 Room Air 97.9 01/19/17 11:01 98.6 84 17 129/62 99 Room Air 98.6 I & O Intake and Output 01/20/17 07:00 Intake Total 3468 ml Output Total 300 ml Balance 3168 ml Intake Oral 815 ml IV Total 2653 ml Output Urine Total 300 ml # Voids 1 PHYSICAL EXAM Physical Exam no change in exam ASSESSMENT/PLAN Assessment/Plan 1. Altered mental status probably seem to be more due to underlying dementia with exacerbation due to dehydration, she state lives with while family reports lives alone and for many years, they are interested in group home placement, start dementia W/U 2. Diabetes mellitus, held metformin due to kidney function will monitor 3. Hyperlipidemia. 4. History of hypertension. 5. History of breast cancer with no evidence of recurrence. 6. Osteoarthritis. Problems: COMMENT Lab Laboratory Tests Test 01/19/17 16:59 01/20/17 04:25 01/20/17 07:34 Glucose (Fingerstick) 130mg/dL (70-99) 160mg/dL (70-99) Sodium Level 140mmol/L (136-145) Potassium Level 4.2mmol/L (3.5-5.1) Chloride Level 106mmol/L (98-107) Carbon Dioxide Level 25mmol/L (21-32) Anion Gap 9 (6-14) Blood Urea Nitrogen 34mg/dL (7-20) Creatinine 1.0mg/dL (0.6-1.0) Estimated GFR (Cockcroft-Gault) 63.2 Glucose Level 194mg/dL (70-99) Calcium Level 9.5mg/dL (8.5-10.1) ORLANDO DOMINGUEZ MD Jan 20, 2017 11:03
--- NOTE | 2017-01-20 12:18 | PDOC2 ---
NEUROLOGY CONSULT Date of Admission Date of Admission DATE: 01/20/17 TIME: 12:12 Reason for Consult Reason for Consult: Altered mental status Referring Physician Referring Physician: Dr. Doe Source Source: Caregiver, Chart review, Patient History of Present Illness History of Present Illness The patient is an 89-year-old right-handed female with altered mental status the last few days. On closer questioning, though, the daughter says the patient has had some memory problems for up to several months. She still thinks that her and mother are alive, for instance. Daughter helps with finances the patient still lives on her own and does cooking and cleaning. There is no history of stroke, seizure, head injury, focal weakness or numbness. The patient is feeling better today. Past Medical History Cardiovascular: HTN, Hyperlipidemia Heme/Onc: Cancer (breast) Psych: Depression Musculoskeletal: Osteoarthritis ENT: Other (glaucoma) Renal/: Urinary Incontinence (stress) Endocrine: Diabetes Past Surgical History Past Surgical History: Cataract Removal, Mastectomy (, bilateral, also has had lumpectomy), Hysterectomy Family History Family History: Cancer Social History Social History , nonsmoker, nondrinker Current Medications Current Medications Current Medications Ondansetron HCl 4 mg 4 mg PRN Q8HRS PRN IV NAUSEA/VOMITING; Start 01/19/17 at 01 :15; Stop 01/20/17 at 01:14; Status DC Sodium Chloride (Iv Sodium Chloride 0.9% 1000ml Bag) 1,000 ml @ 75 mls/hr [id number] IV Last administered on 01/19/17 15:11; Start 01/19/17 at 01:12; Stop at 01:11; Status DC Acetaminophen (Tylenol) 650 mg PRN Q4HRS PRN PO FEVER; Start 01/19/17 at 01:15; Stop 01/20/17 at 01:14; Status DC Acetaminophen (Tylenol) 500 mg DAILY PO Last administered on 01/20/17 08:46; Start 01/19/17 at 09:30 Aspirin (Ecotrin) 81 mg DAILY PO Last administered on 01/20/17 08:46; Start 01/19/17 at 09:30 Carvedilol (Coreg) 6.25 mg BIDWMEALS PO Last administered on 01/20/17 08:45; Start 01/19/17 at 09:30 Cyanocobalamin (Vitamin B-12) 1,000 mcg DAILY PO Last administered on 01/20/17 08:44; Start 01/19/17 at 09:30 Insulin Aspart (Novolog) 15 units TIDAC SQ Last administered on 01/20/17 11:56 ; Start 01/19/17 at 11:30 Insulin Detemir (Levemir) 40 units DAILY08 SQ Last administered on 01/20/17 08: 53; Start 01/19/17 at 10:00 Magnesium Oxide (Magnesium Oxide) 200 mg DAILY PO Last administered on 08:45; Start 01/19/17 at 09:30 Active Scripts Active Levemir Flextouch (Insulin Detemir) 100 Unit/1 Ml Insuln.pen 40 Units SQ DAILY08 Novolog Flexpen (Insulin Aspart) 100 Unit/1 Ml Insuln.pen 15 Units SQ TIDAC Reported Metformin Hcl 1,000 Mg Tablet 1 Tab PO BID Magnesium Oxide 400 Mg Tablet 250 Mg PO DAILY Cozaar (Losartan Potassium) 100 Mg Tablet 100 Mg PO DAILY Lasix (Furosemide) 40 Mg Tablet 1 Tab PO BID Vitamin B-12 (Cyanocobalamin (Vitamin B-12)) 1,000 Mcg Tablet 1,500 Tab PO DAILY Coreg (Carvedilol) 6.25 Mg Tablet 1 Tab PO BID Aspir 81 (Aspirin) 81 Mg Tablet.dr 1 Tab PO DAILY Norvasc (Amlodipine Besylate) 5 Mg Tablet 1 Tab PO DAILY Tylenol (Acetaminophen) 325 Mg Tablet 500 Mg PO DAILY Allergies Allergies: Coded Allergies: lisinopril (Verified Allergy, Severe, angioedema, 11/14/15) ROS Review of System Patient denies fevers, chills, weight loss, dyspnea, angina, abdominal pain, change in bowels, or dysuria. 14 point review of systems is negative. Physical Exam Physical Examination PHYSICAL EXAMINATION: Vital signs: see above. General appearance is normal and in no acute distress. HEENT: Normocephalic and nontraumatic. Eyes, nose, ears, and throat are unremarkable. Neck is supple. No lymphadenopathy. No bruits are heard over the carotid artery. No crepitus. NEUROLOGICAL EXAMINATION: Mental Status Examination: Alert. Does not know the name of the hospital or the date, thinks her mother is still alive and that she still lives with her . Pupils are equal round and reactive to light and accommodation. Extraocular movements are intact. Visual field exam shows no defect on the direct confrontation. Slight right eye ptosis, otherwise no motor or sensory deficits on the facial exam. Uvula in the midline and the soft palate elevated symmetrically. No deviation of the tongue to any direction. Gross hearing is normal. Shoulder shrug normal. Muscle tone is normal. Muscle strength is 4/ 5. Deep tendon reflexes are 2+ all around. Plantar reflex is with flexion response bilaterally. There are bilateral grasp reflexes. Ofmkoc-fe-soqa test performance is accurate. Alternative movements are accurate. Gait not tested. Sensory exam shows no deficits. No cerebellar signs are elicited. Vitals VITALS Vital Signs Date Time Temp Pulse Resp B/P Pulse Ox O2 Delivery O2 Flow Rate FiO2 01/20/17 11:00 97.5 65 129/47 98 Room Air 97.5 01/20/17 03:00 19 Labs Labs Laboratory Tests Test 01/18/17 21:10 01/19/17 07:16 01/19/17 10:48 01/19/17 16:59 White Blood Count 5.9x10^3/uL (4.0-11.0) Red Blood Count 4.72x10^6/uL (3.50-5.40) Hemoglobin 13.4g/dL (12.0-15.5) Hematocrit 39.6% (36.0-47.0) Mean Corpuscular Volume 84fL (79-100) Mean Corpuscular Hemoglobin 28pg (25-35) Mean Corpuscular Hemoglobin Concent 34g/dL (31-37) Red Cell Distribution Width 14.8% (11.5-14.5) Platelet Count 301x10^3/uL (140-400) Neutrophils (%) (Auto) 55% (31-73) Lymphocytes (%) (Auto) 31% (24-48) Monocytes (%) (Auto) 13% (0-9) Eosinophils (%) (Auto) 0% (0-3) Basophils (%) (Auto) 1% (0-3) Neutrophils # (Auto) 3.3x10^3uL (1.8-7.7) Lymphocytes # (Auto) 1.8x10^3/uL (1.0-4.8) Monocytes # (Auto) 0.8x10^3/uL (0.0-1.1) Eosinophils # (Auto) 0.0x10^3/uL (0.0-0.7) Basophils # (Auto) 0.0x10^3/uL (0.0-0.2) Urine Collection Type Unknown Urine Color Yellow Urine Clarity Clear Urine pH 5.5 Urine Specific [place] 1.015 Urine Protein Negativemg/dL (NEG-TRACE) Urine Glucose (UA) Negativemg/dL (NEG) Urine Ketones (Stick) Tracemg/dL (NEG) Urine Blood Negative (NEG) Urine Nitrite Negative (NEG) Urine Bilirubin Negative (NEG) Urine Urobilinogen Dipstick 0.2mg/dL (0.2 mg/dL) Urine Leukocyte Esterase Negative (NEG) Urine RBC 0/HPF (0-2) Urine WBC 0/HPF (0-4) Urine Squamous Epithelial Cells Few/LPF Urine Bacteria 0/HPF (0-FEW) Urine Mucus Slight/LPF Sodium Level 139mmol/L (136-145) Potassium Level 3.9mmol/L (3.5-5.1) Chloride Level 100mmol/L (98-107) Carbon Dioxide Level 28mmol/L (21-32) Anion Gap 11 (6-14) Blood Urea Nitrogen 39mg/dL (7-20) Creatinine 1.5mg/dL (0.6-1.0) Estimated GFR (Cockcroft-Gault) 39.6 Glucose Level 119mg/dL (70-99) Calcium Level 9.8mg/dL (8.5-10.1) Total Bilirubin 0.7mg/dL (0.2-1.0) Direct Bilirubin 0.2mg/dL (0.0-0.2) Aspartate Amino Transf (AST/SGOT) 31U/L (15-37) Alanine Aminotransferase (ALT/SGPT) 21U/L (14-59) Alkaline Phosphatase 101U/L (46-116) Creatine Kinase 446U/L (26-192) Troponin I Quantitative 0.017ng/mL (0.000-0.055) LM-Dhm-G-Type Natriuretic Peptide 370pg/mL (0-449) Total Protein 7.9g/dL (6.4-8.2) Albumin 3.8g/dL (3.4-5.0) Glucose (Fingerstick) 118mg/dL (70-99) 200mg/dL (70-99) 130mg/dL (70-99) Test 01/20/17 04:25 01/20/17 07:34 01/20/17 11:27 Sodium Level 140mmol/L (136-145) Potassium Level 4.2mmol/L (3.5-5.1) Chloride Level 106mmol/L (98-107) Carbon Dioxide Level 25mmol/L (21-32) Anion Gap 9 (6-14) Blood Urea Nitrogen 34mg/dL (7-20) Creatinine 1.0mg/dL (0.6-1.0) Estimated GFR (Cockcroft-Gault) 63.2 Glucose Level 194mg/dL (70-99) Calcium Level 9.5mg/dL (8.5-10.1) Glucose (Fingerstick) 160mg/dL (70-99) 180mg/dL (70-99) Laboratory Tests Test 01/19/17 16:59 01/20/17 04:25 01/20/17 07:34 01/20/17 11:27 Glucose (Fingerstick) 130mg/dL (70-99) 160mg/dL (70-99) 180mg/dL (70-99) Sodium Level 140mmol/L (136-145) Potassium Level 4.2mmol/L (3.5-5.1) Chloride Level 106mmol/L (98-107) Carbon Dioxide Level 25mmol/L (21-32) Anion Gap 9 (6-14) Blood Urea Nitrogen 34mg/dL (7-20) Creatinine 1.0mg/dL (0.6-1.0) Estimated GFR (Cockcroft-Gault) 63.2 Glucose Level 194mg/dL (70-99) Calcium Level 9.5mg/dL (8.5-10.1) Assessment/Plan Assessment/Plan Impression: Metabolic encephalopathy, mild dehydration and may be some hypotension as well, but no other major metabolic derangements. Thus, I believe there is also an underlying dementia, most likely Alzheimer's Recommendations: Agree with MRI and lab work as ordered I discussed my findings with the patient's daughter Will also consider a trial of donepezil. Thank you for letting me help with the patient's care. KIRT ARDON MD Jan 20, 2017 12:17
--- NOTE | 2017-01-20 14:12 | RAD ---
MRI study of the brain without contrast Clinical indications: Left side weakness with altered speech started 5 days ago. Comparison: No previous MRI study of the brain. Head CT dated January 18, 2017. Technique: Noncontrast MRI sequences of the brain were performed in all 3 planes. Diffusion weighted imaging was performed as well. Findings: No restricted diffusion is seen to indicate acute ischemia. No intracranial hemorrhage or midline shift or mass effect or extra-axial fluid collection is seen. Generalized cerebral atrophy is evident. Ventriculomegaly is seen which is commensurate with the amount of cerebral atrophy. There is moderate bilateral periventricular and subcortical white matter hyperintensities consistent with chronic small vessel ischemic disease in this age group. No confluent areas of cerebral edema are seen. There are areas of hyperintensity involving the brainstem especially the peggy consistent with chronic small vessel ischemic disease here. No cerebellar edema is seen. Normal flow signal voids are seen. Internal auditory canals are symmetric and no cerebellopontine angle mass is seen. No opacification of the mastoid sinuses or the paranasal sinuses is seen. Orbits are symmetric. Small hemangioma of the upper posterior right parietal bone is seen. No cerebellar tonsillar ectopia is seen. No pituitary mass is evident. IMPRESSION: Chronic small vessel ischemic disease. No acute ischemia is evident. Generalized cerebral atrophy. No intracranial mass lesion or mass effect or hemorrhage is seen.
[2017-01-20 15:00] VITALS: BP 140/68
[2017-01-20 19:00] VITALS: BP 136/56
[2017-01-20] MEDS ORDERED: DEXTROSE 50% 25 GM / 50ML DISP.SYRIN. IV ONE ×2 (20:00→20:10)
[2017-01-20] MEDS ORDERED: DEXTROSE 50% 25 GM / 50ML DISP.SYRIN. IV PRN (20:15)
[2017-01-20 23:00] VITALS: BP 179/70
[2017-01-21] VITALS (7 sets, daily range): BP systolic 140–186; BP diastolic 46–76
[2017-01-21] MEDS: INSULIN ASPART 300 UNITS/3 ML INSULN.PEN SQ SCH ×2 (07:30→16:44)
[2017-01-21] MEDS: INSULIN DETEMIR 300 UNITS/3 ML INSULN.PEN. SQ SCH (08:00)
[2017-01-21] MEDS: CYANOCOBALAMIN (VITAMIN B-12) 1,000 MCG TABLET. PO SCH (08:28)
[2017-01-21] MEDS: CARVEDILOL 6.25 MG TABLET. PO SCH ×2 (08:28→16:41)
[2017-01-21] MEDS: MAGNESIUM OXIDE 400 MG TABLET PO SCH (08:29)
[2017-01-21] MEDS: ASPIRIN ENTERIC COATED 81 MG TABLET.DR. PO SCH (08:29)
[2017-01-21] MEDS: ACETAMINOPHEN 500 MG TABLET PO SCH (08:29)
[2017-01-21 12:21] LABS: FREE T4 1.21 ng/dL (0.76-1.46)
--- NOTE | 2017-01-21 13:00 | PDOC ---
SUBJECTIVE Subjective feels better, lux in room , she asked grand daughter if diseased answer yes , pt state that is correct, pt and family on board with [facility] OBJECTIVE Vital Signs Vital Signs Date Time Temp Pulse Resp B/P Pulse Ox O2 Delivery O2 Flow Rate FiO2 01/21/17 11:30 97.7 56 18 147/62 99 Room Air 97.7 01/21/17 08:28 67 186/53 01/21/17 08:00 Room Air 01/21/17 07:44 98.1 67 16 186/53 100 Room Air 98.1 01/21/17 03:34 66 169/65 01/21/17 03:23 97.6 63 20 185/74 100 Room Air 97.6 01/20/17 23:00 97.5 69 20 179/70 95 Room Air 97.5 01/20/17 20:00 Room Air 01/20/17 19:00 98.8 67 20 136/56 96 Room Air 98.8 01/20/17 17:34 66 140/68 01/20/17 15:00 97.7 66 140/68 100 Room Air 97.7 I & O Intake and Output 01/21/17 07:00 Intake Total 590 ml Output Total 950 ml Balance -360 ml Intake Oral 590 ml Output Urine Total 950 ml PHYSICAL EXAM Physical Exam no change ASSESSMENT/PLAN Assessment/Plan 1. Altered mental status probably seem to be more due to underlying dementia with exacerbation due to dehydration, pt and family on board with [facility] 2. Diabetes mellitus, hypoglycemia last night , will hold premeal insulin and decrease Levemir 3. Hyperlipidemia. 4. History of hypertension. 5. History of breast cancer with no evidence of recurrence. 6. Osteoarthritis. MRI no acute finding, TSH low but T3 and T4 normal appreciate Neurology help, plan for [facility] care facility placement, await social C input Problems: COMMENT Lab Laboratory Tests Test 01/20/17 13:50 01/20/17 17:06 01/20/17 20:09 01/20/17 20:28 Erythrocyte Sedimentation Rate 22 (0-25) Glucose (Fingerstick) 136mg/dL (70-99) 24mg/dL (70-99) 24mg/dL (70-99) Test 01/20/17 20:50 01/20/17 23:13 01/21/17 03:29 01/21/17 07:47 Glucose (Fingerstick) 77mg/dL (70-99) 125mg/dL (70-99) 108mg/dL (70-99) 91mg/dL (70-99) Test 01/21/17 11:40 01/21/17 11:44 Free Thyroxine 1.21ng/dL (0.76-1.46) Free Triiodothyronine (T3) pg/mL 2.35pg/mL (2.18-3.98) Glucose (Fingerstick) 168mg/dL (70-99) ORLANDO DOMINGUEZ MD Jan 21, 2017 13:00
[2017-01-21] MEDS ORDERED: DEXTROSE 50% 25 GM / 50ML DISP.SYRIN. IV PRN (13:15)
--- NOTE | 2017-01-21 16:02 | PDOC ---
PROGRESS NOTES Assessment Problems Medical Problems: (1) Altered mental status Status: Acute Most likely Alzheimer's dementia with acute problem some mild dehydration, but no evidence of stroke or other major metabolic derangement. Plan custodial unit or assisted-living Return to my office in 4-6 weeks for reassessment of mental status and possible initiation of donepezil and later Namenda. Discussed with Dr. Doe Subjective no complaints Objective Vital Signs Date Time Temp Pulse Resp B/P Pulse Ox O2 Delivery O2 Flow Rate FiO2 01/21/17 14:44 97.9 63 18 141/46 96 Room Air 97.9 Intake and Output 01/21/17 07:00 Intake Total 590 ml Output Total 950 ml Balance -360 ml Intake Oral 590 ml Output Urine Total 950 ml PHYSICAL EXAM Alert. Oriented to "hospital" and person. PERRL. EOMI. CN: no focal findings. Muscle tone: normal. Muscle strength: 4/5 DTR: 1+, bilateral grasp Plantar reflex: flexor Gait: not examined in bed. Sensory exam: no abnormal findings. No cerebellar signs elicited. Review of Relevant I have reviewed the following items rosalio (where applicable) has been applied. Labs Laboratory Tests Test 01/19/17 16:59 01/20/17 04:25 01/20/17 07:34 01/20/17 11:27 Glucose (Fingerstick) 130mg/dL (70-99) 160mg/dL (70-99) 180mg/dL (70-99) Sodium Level 140mmol/L (136-145) Potassium Level 4.2mmol/L (3.5-5.1) Chloride Level 106mmol/L (98-107) Carbon Dioxide Level 25mmol/L (21-32) Anion Gap 9 (6-14) Blood Urea Nitrogen 34mg/dL (7-20) Creatinine 1.0mg/dL (0.6-1.0) Estimated GFR (Cockcroft-Gault) 63.2 Glucose Level 194mg/dL (70-99) Calcium Level 9.5mg/dL (8.5-10.1) Thyroid Stimulating Hormone (TSH) 0.290uIU/mL (0.358-3.74) Test 01/20/17 13:50 01/20/17 17:06 01/20/17 20:09 01/20/17 20:28 Erythrocyte Sedimentation Rate 22 (0-25) Glucose (Fingerstick) 136mg/dL (70-99) 24mg/dL (70-99) 24mg/dL (70-99) Test 01/20/17 20:50 01/20/17 23:13 01/21/17 03:29 01/21/17 07:47 Glucose (Fingerstick) 77mg/dL (70-99) 125mg/dL (70-99) 108mg/dL (70-99) 91mg/dL (70-99) Test 01/21/17 11:40 01/21/17 11:44 Free Thyroxine 1.21ng/dL (0.76-1.46) Free Triiodothyronine (T3) pg/mL 2.35pg/mL (2.18-3.98) Glucose (Fingerstick) 168mg/dL (70-99) Laboratory Tests Test 01/20/17 17:06 01/20/17 20:09 01/20/17 20:28 01/20/17 20:50 Glucose (Fingerstick) 136mg/dL (70-99) 24mg/dL (70-99) 24mg/dL (70-99) 77mg/dL (70-99) Test 01/20/17 23:13 01/21/17 03:29 01/21/17 07:47 01/21/17 11:40 Glucose (Fingerstick) 125mg/dL (70-99) 108mg/dL (70-99) 91mg/dL (70-99) Free Thyroxine 1.21ng/dL (0.76-1.46) Free Triiodothyronine (T3) pg/mL 2.35pg/mL (2.18-3.98) Test 01/21/17 11:44 Glucose (Fingerstick) 168mg/dL (70-99) Medications Current Medications Ondansetron HCl 4 mg 4 mg PRN Q8HRS PRN IV NAUSEA/VOMITING; Start 01/19/17 at 01 :15; Stop 01/20/17 at 01:14; Status DC Sodium Chloride (Iv Sodium Chloride 0.9% 1000ml Bag) 1,000 ml @ 75 mls/hr [id number] IV Last administered on 01/19/17t 15:11; Start 01/19/17 at 01:12; Stop at 01:11; Status DC Acetaminophen (Tylenol) 650 mg PRN Q4HRS PRN PO FEVER; Start 01/19/17 at 01:15; Stop 01/20/17 at 01:14; Status DC Acetaminophen (Tylenol) 500 mg DAILY PO Last administered on 01/21/17 08:29; Start 01/19/17 at 09:30 Aspirin (Ecotrin) 81 mg DAILY PO Last administered on 01/21/17 08:29; Start 01/19/17 at 09:30 Carvedilol (Coreg) 6.25 mg BIDWMEALS PO Last administered on 01/21/17 08:28; Start 01/19/17 at 09:30 Cyanocobalamin (Vitamin B-12) 1,000 mcg DAILY PO Last administered on 01/21/17 08:28; Start 01/19/17 at 09:30 Insulin Aspart (Novolog) 15 units TIDAC SQ Last administered on 01/20/17 17:33 ; Start 01/19/17 at 11:30; Stop 01/21/17 at 11:16; Status DC Insulin Detemir (Levemir) 40 units DAILY08 SQ Last administered on 01/20/17 08: 53; Start 01/19/17 at 10:00; Stop 01/21/17 at 11:16; Status DC Magnesium Oxide (Magnesium Oxide) 200 mg DAILY PO Last administered on 08:29; Start 01/19/17 at 09:30 Dextrose (Dextrose 50%-Water Syringe) 25 gm STK-MED ONCE IV ; Start 01/20/17 at 20:10; Stop 01/20/17 at 20:11; Status DC Dextrose (Dextrose 50%-Water Syringe) 12.5 gm PRN Q15MIN PRN IV SEE COMMENTS; Start 01/20/17 at 20:15 Insulin Detemir (Levemir) 30 units DAILY08 SQ ; Start 01/22/17 at 08:00 Insulin Aspart (Novolog) 0-5 UNITS TIDWMEALS SQ ; Start 01/21/17 at 17:00 Dextrose (Dextrose 50%-Water Syringe) 12.5 gm PRN Q15MIN PRN IV SEE COMMENTS; Start 01/21/17 at 13:15 Active Scripts Active Levemir Flextouch (Insulin Detemir) 100 Unit/1 Ml Insuln.pen 40 Units SQ DAILY08 Novolog Flexpen (Insulin Aspart) 100 Unit/1 Ml Insuln.pen 15 Units SQ TIDAC Reported Metformin Hcl 1,000 Mg Tablet 1 Tab PO BID Magnesium Oxide 400 Mg Tablet 250 Mg PO DAILY Cozaar (Losartan Potassium) 100 Mg Tablet 100 Mg PO DAILY Lasix (Furosemide) 40 Mg Tablet 1 Tab PO BID Vitamin B-12 (Cyanocobalamin (Vitamin B-12)) 1,000 Mcg Tablet 1,500 Tab PO DAILY Coreg (Carvedilol) 6.25 Mg Tablet 1 Tab PO BID Aspir 81 (Aspirin) 81 Mg Tablet.dr 1 Tab PO DAILY Norvasc (Amlodipine Besylate) 5 Mg Tablet 1 Tab PO DAILY Tylenol (Acetaminophen) 325 Mg Tablet 500 Mg PO DAILY Vitals/I & O Vital Sign - Last 24 Hours 01/20/17 01/20/17 01/20/17 01/20/17 17:34 19:00 20:00 23:00 Temp 98.8 97.5 98.8 97.5 Pulse 66 67 69 Resp 20 20 B/P 140/68 136/56 179/70 Pulse Ox 96 95 O2 Delivery Room Air Room Air Room Air 01/21/17 01/21/17 01/21/17 01/21/17 03:23 03:34 07:44 08:00 Temp 97.6 98.1 97.6 98.1 Pulse 63 66 67 Resp 20 16 B/P 185/74 169/65 186/53 Pulse Ox 100 100 O2 Delivery Room Air Room Air Room Air 01/21/17 01/21/17 01/21/17 08:28 11:30 14:44 Temp 97.7 97.9 97.7 97.9 Pulse 67 56 63 Resp 18 18 B/P 186/53 147/62 141/46 Pulse Ox 99 96 O2 Delivery Room Air Room Air Intake and Output 01/20/17 01/20/17 01/21/17 15:00 23:00 07:00 Intake Total 350 ml 240 ml Output Total 400 ml 550 ml Balance -50 ml -310 ml Images Brain MRI: Findings: No restricted diffusion is seen to indicate acute ischemia. No intracranial hemorrhage or midline shift or mass effect or extra-axial fluid collection is seen. Generalized cerebral atrophy is evident. Ventriculomegaly is seen which is commensurate with the amount of cerebral atrophy. There is moderate bilateral periventricular and subcortical white matter hyperintensities consistent with chronic small vessel ischemic disease in this age group. No confluent areas of cerebral edema are seen. There are areas of hyperintensity involving the brainstem especially the peggy consistent with chronic small vessel ischemic disease here. No cerebellar edema is seen. Normal flow signal voids are seen. Internal auditory canals are symmetric and no cerebellopontine angle mass is seen. No opacification of the mastoid sinuses or the paranasal sinuses is seen. Orbits are symmetric. Small hemangioma of the upper posterior right parietal bone is seen. No cerebellar tonsillar ectopia is seen. No pituitary mass is evident. IMPRESSION: Chronic small vessel ischemic disease. No acute ischemia is evident. KIRT ARDON MD Jan 21, 2017 16:02
[2017-01-22 03:00] VITALS: BP 135/60
[2017-01-22 07:00] VITALS: BP 149/84
[2017-01-22] MEDS: INSULIN ASPART 300 UNITS/3 ML INSULN.PEN SQ SCH ×2 (08:00→12:00)
[2017-01-22] MEDS ORDERED: INSULIN DETEMIR 300 UNITS/3 ML INSULN.PEN. SQ SCH (08:00)
[2017-01-22] MEDS: MAGNESIUM OXIDE 400 MG TABLET PO SCH (09:01)
[2017-01-22] MEDS: ACETAMINOPHEN 500 MG TABLET PO SCH (09:02)
[2017-01-22] MEDS: CYANOCOBALAMIN (VITAMIN B-12) 1,000 MCG TABLET. PO SCH (09:02)
[2017-01-22] MEDS: ASPIRIN ENTERIC COATED 81 MG TABLET.DR. PO SCH (09:02)
[2017-01-22] MEDS: CARVEDILOL 6.25 MG TABLET. PO SCH (09:05)
--- NOTE | 2017-01-22 10:12 | PDOC ---
SUBJECTIVE Subjective neice in room discussed dx , agree with SNU, pt feels better OBJECTIVE Objective restart losartan for HTN Vital Signs Vital Signs Date Time Temp Pulse Resp B/P Pulse Ox O2 Delivery O2 Flow Rate FiO2 01/22/17 09:05 68 149/84 01/22/17 07:00 98.2 55 18 149/84 97 Room Air 98.2 01/22/17 03:00 98.2 64 18 135/60 93 Room Air 98.2 01/21/17 23:00 98.1 68 18 150/76 97 Room Air 98.1 01/21/17 20:00 Room Air 01/21/17 19:00 98.1 59 20 140/65 97 Room Air 98.1 01/21/17 16:41 63 141/46 01/21/17 14:44 97.9 63 18 141/46 96 Room Air 97.9 01/21/17 11:30 97.7 56 18 147/62 99 Room Air 97.7 I & O Intake and Output 01/22/17 07:00 Intake Total 900 ml Output Total 400 ml Balance 500 ml Intake Oral 900 ml Output Urine Total 400 ml # Voids 3 PHYSICAL EXAM Physical Exam no change ASSESSMENT/PLAN Assessment/Plan stable and doing well, reume Losartan and Metformin, can be discharged any time when SNU available Problems: COMMENT Lab Laboratory Tests Test 01/21/17 11:40 01/21/17 11:44 01/21/17 16:02 01/21/17 20:57 Free Thyroxine 1.21ng/dL (0.76-1.46) Free Triiodothyronine (T3) pg/mL 2.35pg/mL (2.18-3.98) Glucose (Fingerstick) 168mg/dL (70-99) 260mg/dL (70-99) 221mg/dL (70-99) Test 01/22/17 07:49 Glucose (Fingerstick) 128mg/dL (70-99) ORLANDO DOMINGUEZ MD Jan 22, 2017 10:12
[2017-01-22 10:21] LABS: THYROXINE 7.1 ug/dL (4.5-12.0)
[2017-01-22 10:28] LABS: FOLATE 10.58 ng/ml (3.2-20.0)
[2017-01-22 11:00] VITALS: BP 168/72
[2017-01-22] MEDS ORDERED: LOSARTAN POTASSIUM 50 MG TABLET. PO SCH (11:00)
[2017-01-22 11:59] VITALS: BP 168/72
--- NOTE | 2017-01-22 20:05 | PDOC ---
PROGRESS NOTES Assessment Assessment IMPRESSION: Metabolic encephalopathy. Dehydration. Confusion. Dementia. Right eye ptosis. No evidence of acute CVA this time. RECOMMENDATIONS/PLAN: Medical treatment. FU with Dr. Forbes in neurology Clinic for dementia issues. PAST MEDICAL AND SURGICAL HISTORY: Please see H&P ALLERGY: Reviewed. MEDICATIONS: Refer to MAR REVIEW OF SYSTEMS: Refer to PMX and PSX. PHYSICAL EXAMINATION: General appearance in no acute distress. HEENT: Normocephalic and nontraumatic. Eyes, nose, ears, and throat are unremarkable. Hearing decrease. Neck is supple. No lymphadenopathy. No Crepitus. Cardiovascular: S1, S2, regular rate and rhythm. Pulmonary: Clear to auscultation bilaterally. Abdomen: Bowel sounds are positive. Extremities: No rash, lesions, or edema. No restriction of range of motion NEUROLOGICAL EXAMINATION: Awake. Not oriented to time, but knows place and person. PERRL. EOMI. CN: no focal findings. Muscle tone: within normal. Muscle strength: 4+ DTR: 2 Plantar reflex: Neutral response bilaterally Gait: not examined in bed. Sensory exam: no abnormal findings. No acute cerebellar signs elicited. Objective Objective Vital Signs Date Time Temp Pulse Resp B/P Pulse Ox O2 Delivery O2 Flow Rate FiO2 01/22/17 11:59 60 168/72 01/22/17 11:00 97.7 18 97 Room Air 97.7 Intake and Output 01/22/17 07:00 Intake Total 900 ml Output Total 400 ml Balance 500 ml Intake Oral 900 ml Output Urine Total 400 ml # Voids 3 Vitals Signs Vitals VS - Last 72 Hours, by Label Date Time Temp Pulse Resp B/P Pulse Ox O2 Delivery O2 Flow Rate FiO2 01/22/17 11:59 60 168/72 01/22/17 11:00 97.7 59 18 168/72 97 Room Air 97.7 01/22/17 09:05 68 149/84 01/22/17 08:00 Room Air 01/22/17 07:00 98.2 55 18 149/84 97 Room Air 98.2 01/22/17 03:00 98.2 64 18 135/60 93 Room Air 98.2 01/21/17 23:00 98.1 68 18 150/76 97 Room Air 98.1 01/21/17 20:00 Room Air 01/21/17 19:00 98.1 59 20 140/65 97 Room Air 98.1 01/21/17 16:41 63 141/46 01/21/17 14:44 97.9 63 18 141/46 96 Room Air 97.9 01/21/17 11:30 97.7 56 18 147/62 99 Room Air 97.7 01/21/17 08:28 67 186/53 01/21/17 08:00 Room Air 01/21/17 07:44 98.1 67 16 186/53 100 Room Air 98.1 Laboratory Laboratory Laboratory Tests Test 01/21/17 20:57 01/22/17 07:49 Glucose (Fingerstick) 221mg/dL (70-99) 128mg/dL (70-99) Medication Medications Current Medications Insulin Detemir (Levemir) 30 units DAILY08 SQ Last administered on 01/22/17 09 :09; Start 01/22/17 at 08:00; Stop 01/22/17 at 15:58; Status DC Losartan Potassium (Cozaar) 100 mg DAILY PO Last administered on 01/22/17 11: 59; Start 01/22/17 at 11:00; Stop 01/22/17 at 15:58; Status DC Comment Review of Relevant I have reviewed the following items rosalio (where applicable) has been applied. LUDMILA GONZALEZ MD Jan 22, 2017 20:04
--- NOTE | 2017-01-23 09:59 | PDOC3 ---
Discharge Summary* Date of Admission: Jan 19, 2017 Date of Discharge: Jan 22, 2017 Admitting Diagnosis Problems Medical Problems: (1) Altered mental status Status: Acute Final Diagnosis 1. Altered mental status , metabolic encephalopathy, underlying dementia 2. Diabetes mellitus with hypoglycemia insulin adjusted 3. Hyperlipidemia. 4. History of hypertension. 5. History of breast cancer with no evidence of recurrence. 6. Osteoarthritis. 7- acute on chronic stage III kidney disease Problems Medical Problems: (1) Altered mental status Status: Acute CONSULTS neurology Procedures CT scan head, MRI brain, CXR, Brief Hospital Course Ms. Foster is a 89 old [sex] who presented with [ ] Disposition/Orders: D/C to Another Facility CONDITION AT DISCHARGE: Stable Diet: Cardiac, Consistent Carbohydrate Scheduled Acetaminophen (Tylenol) 500 MG PO DAILY (Reported) Amlodipine Besylate (Norvasc) 1 TAB PO DAILY (Reported) Aspirin (Aspir 81) 1 TAB PO DAILY (Reported) Carvedilol (Coreg) 1 TAB PO BID (Reported) Cyanocobalamin (Vitamin B-12) (Vitamin B-12) 1,500 TAB PO DAILY (Reported) Furosemide (Lasix) 1 TAB PO BID (Reported) Insulin Aspart (Novolog Flexpen) 15 UNITS SQ TIDAC Insulin Detemir (Levemir Flextouch) 40 UNITS SQ DAILY08 Losartan Potassium (Cozaar) 100 MG PO DAILY (Reported) Magnesium Oxide (Magnesium Oxide) 250 MG PO DAILY (Reported) Metformin Hcl (Metformin Hcl) 1 TAB PO BID (Reported) FOLLOW UP APPOINTMENT: Dr. Ewing [address] Mayorga 3-4 week considering dementia medication Time Spent Total time spent with patient [] minutes for coordination of care, counseling, and education. ORLANDO DOMINGUEZ MD Jan 23, 2017 09:59
== END 2017-01-22 15:58 | DRG 682 ==
LOC: ER 20:58 → 5 NORTH 01-19 00:09
PROVIDERS: ADMIT Internal Medicine; ATTEND Internal Medicine
DX: N17.9 Acute kidney failure, unspecified (principal); G93.41 Metabolic encephalopathy; I13.0 Hypertensive heart and chronic kidney disease with heart failure and stage 1 through stage 4 chronic kidney disease, or unspecified chronic kidney disease; E86.0 Dehydration; G30.9 Alzheimer's disease, unspecified; F02.80 Dementia in other diseases classified elsewhere, unspecified severity, without behavioral disturbance, psychotic disturbance, mood disturbance, and anxiety; E11.649 Type 2 diabetes mellitus with hypoglycemia without coma; E78.5 Hyperlipidemia, unspecified; H02.401 Unspecified ptosis of right eyelid; F32.9 Major depressive disorder, single episode, unspecified; H40.9 Unspecified glaucoma; M19.90 Unspecified osteoarthritis, unspecified site; Z82.49 Family history of ischemic heart disease and other diseases of the circulatory system; Z85.3 Personal history of malignant neoplasm of breast; Z90.13 Acquired absence of bilateral breasts and nipples; Z90.710 Acquired absence of both cervix and uterus; Z83.3 Family history of diabetes mellitus; Z88.8 Allergy status to other drugs, medicaments and biological substances; N18.3 Chronic kidney disease, stage 3 (moderate)
CPT/HCPCS: 36415; 70450; 70551; 71010; 80048; 80076; 81001; 82550; 82607; 82746; 82947; 83880; 84436; 84439; 84443; 84479; 84480; 84481; 84484; 85027; 85651; 86593; 93005; J1815; J7030; J7042; 97116; 97530; 99285-25